=== PATIENT | female | born 1965 | race Caucasian/White ===

== ENCOUNTER 2018-03-10 23:19 | Inpatient (IN) | payer MEDICAID ==
[~2018-03-10] VITALS: Ht 157.5 cm; Wt 89.1 kg
[2018-03-10 23:27] VITALS: Ht 157.5 cm; Wt 89.1 kg
[2018-03-11] VITALS (10 sets, daily range): BP systolic 128–157; BP diastolic 55–93
[2018-03-11 00:34] LABS: ALKALINE PHOSPHATASE 88 U/L (46-116); ALT/SGPT 20 U/L (14-59); AMYLASE 58 U/L (25-115); AST/SGOT 16 U/L (15-37); BILIRUBIN TOTAL 0.2 mg/dL (0.20-1.00); CALCIUM 7.8 mg/dL (8.5-10.1); CARBON DIOXIDE 27.5 mmol/L (21-32); CHLORIDE SERUM 104 mmol/L (98-107); CREATININE SERUM 0.8 mg/dL (0.6-1.0); GFR1 > 60 mL/min; GLUCOSE SERUM 117 mg/dL (74-106); LIPASE 237 IU/L (73-393); SODIUM SERUM 140 mmol/L (136-145); TOTAL PROTEIN, SERUM 6.9 g/dL (6.4-8.2)
[2018-03-11 00:37] LABS: ALBUMIN 2.8 g/dL (3.4-5.0)
[2018-03-11 00:38] LABS: POTASSIUM SERUM 2.9 mmol/L (3.5-5.1)
[2018-03-11 01:06] LABS: BASOPHIL % 0.6 % (0-2)
[2018-03-11 01:07] LABS: PLATELET COUNT 474 x10^3mcL (130-400); RED CELL DISTRIBUTION WIDTH 18.6 % (11.5-14.5)
[2018-03-11] MEDS ORDERED: HYDROCHLOROTHIA25 MG PO (02:01)
[2018-03-11] MEDS ORDERED: VENTOLIN H0.09 MG/A1 IH (02:02)
[2018-03-11] MEDS ORDERED: CATAPRES0.1 MG PO (02:02)
[2018-03-11 03:01] LABS: FREE T4 1.01 ng/dL (0.76-1.46); FREE THYROXINE INDEX 2.3 ug/dL (1.4-4.5); T4(THYROXINE) 7.6 ug/dL (4.7-13.3)
[2018-03-11 03:22] LABS: T3 TOTAL 1.46 ng/mL
[2018-03-11 04:02] LABS: MAGNESIUM 1.6 mg/dL (1.8-2.4); PHOSPHOROUS 3.8 mg/dL (2.5-4.9)
[2018-03-11 04:03] LABS: CHOLESTEROL/HDL RATIO 2.6
[2018-03-11 07:28] LABS: CALCIUM 7.8 mg/dL (8.5-10.1); CARBON DIOXIDE 27.1 mmol/L (21-32); CHLORIDE SERUM 106 mmol/L (98-107); CREATININE SERUM 0.8 mg/dL (0.6-1.0); GFR1 > 60 mL/min; GLUCOSE SERUM 95 mg/dL (74-106); POTASSIUM SERUM 3.4 mmol/L (3.5-5.1); SODIUM SERUM 140 mmol/L (136-145)
[2018-03-11 07:56] LABS: AMPHETAMINE QUAL UR POSITIVE (See below)
[2018-03-11 08:01] LABS: IRON 10 ug/dL (50-170); TOTAL IRON BINDING CAPACITY 423 ug/dL (250-450)
[2018-03-11 08:05] LABS: RED BLOOD CELLS 3.55 M/mm3 (4.10-5.10)
[2018-03-11 08:30] LABS: MAGNESIUM 1.7 mg/dL (1.8-2.4); PHOSPHOROUS 4.1 mg/dL (2.5-4.9)
[2018-03-11 08:43] LABS: UA SPECIFIC GRAVITY >=1.030 (1.005-1.035); microscopic required? YES; urine erythrocyte NEGATIVE (NEGATIVE)
[2018-03-11 12:45] LABS: BASOPHIL % 0 % (0-2); PLATELET COUNT 406 x10^3mcL (130-400); RED CELL DISTRIBUTION WIDTH 18.7 % (11.5-14.5)
[2018-03-11 13:36] LABS: rbc morphology (normal/abnorm) ABNORMAL (NORMAL)
[2018-03-11 16:11] LABS: BASOPHIL % 0.3 % (0-2); PLATELET COUNT 377 x10^3mcL (130-400)
[2018-03-11 16:14] LABS: RED CELL DISTRIBUTION WIDTH 18.7 % (11.5-14.5)
[2018-03-11 16:51] LABS: rbc morphology (normal/abnorm) ABNORMAL (NORMAL)
[2018-03-12 05:26] VITALS: BP 110/54
[2018-03-12 05:57] LABS: BASOPHIL % 0.4 % (0-2); PLATELET COUNT 392 x10^3mcL (130-400)
[2018-03-12 05:59] LABS: CALCIUM 7.5 mg/dL (8.5-10.1); CARBON DIOXIDE 26.9 mmol/L (21-32); CHLORIDE SERUM 108 mmol/L (98-107); CREATININE SERUM 0.8 mg/dL (0.6-1.0); GFR1 > 60 mL/min; GLUCOSE SERUM 90 mg/dL (74-106); MAGNESIUM 1.6 mg/dL (1.8-2.4); PHOSPHOROUS 2.8 mg/dL (2.5-4.9); POTASSIUM SERUM 3.8 mmol/L (3.5-5.1); SODIUM SERUM 140 mmol/L (136-145)
[2018-03-12 06:03] LABS: RED CELL DISTRIBUTION WIDTH 21.5 % (11.5-14.5)
[2018-03-12 09:40] VITALS: BP 133/70
[2018-03-12 11:40] VITALS: BP 138/74
[2018-03-12 14:10] VITALS: BP 112/59
[2018-03-12 17:21] VITALS: BP 133/66
[2018-03-12] MEDS ORDERED: CAT0.1 PO (19:00)
[2018-03-12 19:22] VITALS: BP 133/66
[2018-03-12] MEDS ORDERED: ATIVAN1 MG PO (19:28)
== END 2018-03-12 19:45 | disposition home or self-care (01) | DRG 244 ==
LOC: EDBD 23:19 → ED 23:19 → DU 03-11 01:42
PROVIDERS: Emergency Medicine; Internal Medicine
PROC: 0DBN8ZZ Excision of Sigmoid Colon, Via Natural or Artificial Opening Endoscopic (ICD-10-PCS; principal; 2018-03-12 12:30)
DX: K57.31 Diverticulosis of large intestine without perforation or abscess with bleeding (principal); E43 Unspecified severe protein-calorie malnutrition; K63.5 Polyp of colon; D62 Acute posthemorrhagic anemia; E83.42 Hypomagnesemia; K64.9 Unspecified hemorrhoids; I16.0 Hypertensive urgency; E87.6 Hypokalemia; E66.9 Obesity, unspecified; Z68.36 Body mass index [BMI] 36.0-36.9, adult
CPT/HCPCS: 45378; 83880; 84439; 87046; 87046-59; C9113; J1200; J1610; J1885; J2250; J2310; J2405; J2916; J3010; J3475; J3490; J7030; P9016; Q0163

== ENCOUNTER 2018-07-15 07:26 | Emergency (ER) | payer MEDICAID ==
[~2018-07-15] VITALS: Ht 157.5 cm; Wt 88.5 kg
[~2018-07-15 07:26] MED LIST: ATIVAN1 MG PO; CAT0.1 PO; CATAPRES0.1 MG PO; HYDROCHLOROTHIA25 MG PO; VENTOLIN H0.09 MG/A1 IH
[2018-07-15 07:37] VITALS: BP 183/109; Ht 157.5 cm; Wt 88.5 kg
[2018-07-15 08:10] LABS: BASOPHIL % 0.5 % (0-2); PLATELET COUNT 385 x10^3mcL (130-400)
[2018-07-15 08:16] LABS: RED CELL DISTRIBUTION WIDTH 20.3 % (11.5-14.5)
[2018-07-15 08:19] LABS: CALCIUM 8.6 mg/dL (8.5-10.1); CARBON DIOXIDE 28.8 mmol/L (21-32); CHLORIDE SERUM 105 mmol/L (98-107); CREATININE SERUM 0.8 mg/dL (0.6-1.0); GFR1 > 60 mL/min; GLUCOSE SERUM 100 mg/dL (74-106); POTASSIUM SERUM 3.7 mmol/L (3.5-5.1); SODIUM SERUM 140 mmol/L (136-145)
[2018-07-15 08:24] LABS: ALBUMIN 3.3 g/dL (3.4-5.0); ALKALINE PHOSPHATASE 94 U/L (46-116); ALT/SGPT 26 U/L (14-59); AST/SGOT 17 U/L (15-37); BILIRUBIN TOTAL 0.2 mg/dL (0.20-1.00); TOTAL PROTEIN, SERUM 7.4 g/dL (6.4-8.2)
[2018-07-15 09:22] LABS: rbc morphology (normal/abnorm) ABNORMAL (NORMAL)
[2018-07-15 09:23] LABS: ovalocyte/elliptocyte 1+
== END 2018-07-15 09:58 | disposition home or self-care (01) ==
LOC: ED 07:26
PROVIDERS: Emergency Medicine
DX: N93.8 Other specified abnormal uterine and vaginal bleeding (principal); I10 Essential (primary) hypertension; Z88.8 Allergy status to other drugs, medicaments and biological substances
CPT/HCPCS: 36415

== ENCOUNTER 2018-08-24 22:58 | Emergency (ER) | payer MEDICAID ==
[~2018-08-24] VITALS: Ht 154.9 cm; Wt 90.9 kg
[2018-08-24 23:08] VITALS: Ht 154.9 cm; Wt 90.9 kg
[2018-08-25 00:58] VITALS: BP 161/99
== END 2018-08-25 00:58 | disposition home or self-care (01) ==
LOC: ED 22:58
DX: M54.41 Lumbago with sciatica, right side (principal); I10 Essential (primary) hypertension; Z98.890 Other specified postprocedural states; Z88.8 Allergy status to other drugs, medicaments and biological substances
CPT/HCPCS: J1885

== ENCOUNTER 2018-09-12 14:19 | Emergency (ER) | payer MEDICAID ==
[~2018-09-12] VITALS: Ht 157.5 cm; Wt 90.7 kg
[2018-09-12 14:52] VITALS: Ht 157.5 cm; Wt 90.7 kg
[2018-09-12 17:37] LABS: BASOPHIL % 0.7 % (0-2)
[2018-09-12 17:41] LABS: PLATELET COUNT 426 x10^3mcL (130-400); RED CELL DISTRIBUTION WIDTH 23.9 % (11.5-14.5)
[2018-09-12 17:53] LABS: CALCIUM 8.8 mg/dL (8.5-10.1); CARBON DIOXIDE 26.4 mmol/L (21-32); CHLORIDE SERUM 105 mmol/L (98-107); CREATININE SERUM 0.8 mg/dL (0.6-1.0); GFR1 > 60 mL/min; GLUCOSE SERUM 95 mg/dL (74-106); POTASSIUM SERUM 3.5 mmol/L (3.5-5.1); SODIUM SERUM 141 mmol/L (136-145)
[2018-09-12 17:59] LABS: rbc morphology (normal/abnorm) ABNORMAL (NORMAL)
[2018-09-12 18:00] LABS: ovalocyte/elliptocyte 1+
[2018-09-12 18:05] LABS: ALBUMIN 3.8 g/dL (3.4-5.0); ALKALINE PHOSPHATASE 89 U/L (46-116); ALT/SGPT 27 U/L (14-59); AST/SGOT 15 U/L (15-37); BILIRUBIN TOTAL 0.1 mg/dL (0.20-1.00); T4(THYROXINE) 7.6 ug/dL (4.7-13.3); TOTAL PROTEIN, SERUM 8.1 g/dL (6.4-8.2)
[2018-09-12 20:07] VITALS: BP 126/63
== END 2018-09-12 20:07 | disposition home or self-care (01) ==
LOC: ED 14:19
PROVIDERS: Emergency Medicine
DX: N93.8 Other specified abnormal uterine and vaginal bleeding (principal); D25.9 Leiomyoma of uterus, unspecified; I16.0 Hypertensive urgency; D50.9 Iron deficiency anemia, unspecified; E66.9 Obesity, unspecified; Z68.36 Body mass index [BMI] 36.0-36.9, adult; Z98.890 Other specified postprocedural states; Z88.6 Allergy status to analgesic agent; Z90.49 Acquired absence of other specified parts of digestive tract
CPT/HCPCS: J2060; J3490; J7030

== ENCOUNTER 2018-11-07 10:13 | Emergency (ER) | payer MEDICAID ==
[~2018-11-07] VITALS: Ht 157.5 cm; Wt 86.2 kg
[2018-11-07 10:22] VITALS: Ht 157.5 cm; Wt 86.2 kg
[2018-11-07 10:58] LABS: BASOPHIL % 0.4 % (0-2); PLATELET COUNT 372 x10^3mcL (130-400)
[2018-11-07 11:06] LABS: RED CELL DISTRIBUTION WIDTH 17.1 % (11.5-14.5)
[2018-11-07 11:17] LABS: CALCIUM 8.5 mg/dL (8.5-10.1); CARBON DIOXIDE 26.5 mmol/L (21-32); CHLORIDE SERUM 106 mmol/L (98-107); CREATININE SERUM 0.9 mg/dL (0.6-1.0); GFR1 > 60 mL/min; GLUCOSE SERUM 120 mg/dL (74-106); POTASSIUM SERUM 3.5 mmol/L (3.5-5.1); SODIUM SERUM 140 mmol/L (136-145)
[2018-11-07 11:21] LABS: ALBUMIN 3.4 g/dL (3.4-5.0); ALKALINE PHOSPHATASE 76 U/L (46-116); ALT/SGPT 27 U/L (14-59); AST/SGOT 15 U/L (15-37); BILIRUBIN TOTAL 0.1 mg/dL (0.20-1.00); TOTAL PROTEIN, SERUM 7.4 g/dL (6.4-8.2)
[2018-11-07 11:27] LABS: FREE T4 0.98 ng/dL (0.76-1.46); FREE THYROXINE INDEX 2.9 ug/dL (1.4-4.5); T3 TOTAL 0.99 ng/mL; T4(THYROXINE) 8.1 ug/dL (4.7-13.3)
[2018-11-07 11:44] LABS: AMPHETAMINE QUAL UR POSITIVE (See below)
[2018-11-07 15:52] VITALS: BP 140/76
[2018-11-08 04:34] LABS: microscopic required? YES; urine erythrocyte 1+ (NEGATIVE)
== END 2018-11-07 15:50 | disposition home or self-care (01) ==
LOC: ED 10:13
PROVIDERS: Emergency Medicine
DX: F32.9 Major depressive disorder, single episode, unspecified (principal); F43.9 Reaction to severe stress, unspecified; F15.90 Other stimulant use, unspecified, uncomplicated; I10 Essential (primary) hypertension; D64.9 Anemia, unspecified; N93.8 Other specified abnormal uterine and vaginal bleeding; Z98.890 Other specified postprocedural states; Z86.19 Personal history of other infectious and parasitic diseases; Z88.8 Allergy status to other drugs, medicaments and biological substances
CPT/HCPCS: 36415; 84439; G0480

== ENCOUNTER 2018-11-19 16:53 | Emergency (ER) | payer MEDICAID ==
[~2018-11-19] VITALS: Ht 157.5 cm; Wt 85.7 kg
[2018-11-19 17:34] VITALS: Ht 157.5 cm; Wt 85.7 kg
[2018-11-19 19:44] VITALS: BP 168/94
== END 2018-11-19 19:38 | disposition home or self-care (01) ==
LOC: ED 16:53
DX: L98.9 Disorder of the skin and subcutaneous tissue, unspecified (principal); I10 Essential (primary) hypertension; F17.210 Nicotine dependence, cigarettes, uncomplicated; Z88.8 Allergy status to other drugs, medicaments and biological substances